=== PATIENT | male | born 1985 | race Hispanic/Latino ===

== ENCOUNTER 2019-10-18 18:41 | Observation (INO) | payer SELFPAY ==
[2019-10-18] MEDS ORDERED: NA CHLORIDE 0.9% 2,000 ML ONE (19:52)
[2019-10-18] MEDS ORDERED: FAMOTIDINE 20 MG/2 ML VIAL IV ONE (19:52)
[2019-10-18] MEDS ORDERED: ONDANSETRON 4 MG/2 ML VIAL ONE (19:52)
[2019-10-18] MEDS ORDERED: MORPHINE 4 MG/ML SYR ONE (19:52)
[2019-10-18 20:01] LABS: Absolute Lymphocytes (CBC) 1.2 K/uL (0.7-4.9); Basophils % 0.3 % (0-1.3); Hematocrit 48.7 % (39.6-49.0); Lymphocytes % 11.7 % (15.3-44.8); RBC Red Blood Cell Count 5.85 M/uL (4.33-5.43)
[2019-10-18 20:02] LABS: Protime INR 1.11
[2019-10-18 20:22] LABS: ALT/SGPT 44 U/L (12-78); AST/SGOT 19 U/L (15-37); Albumin 3.9 g/dL (3.4-5.0); Alkaline Phosphatase 84 U/L (45-117); BUN Blood Urea Nitrogen 14 mg/dL (7-18); Bicarbonate 27 mmol/L (21-32); Bilirubin Direct 0.1 mg/dL (0-0.2); Bilirubin Total 0.6 mg/dL (0.2-1.0); Glucose Level 93 mg/dL (74-106); Lipase 76 U/L (73-393); Magnesium 2.1 mg/dL (1.8-2.4); Potassium 3.8 mmol/L (3.5-5.1); Protein, Total 8.1 g/dL (6.4-8.2); Sodium Level 137 mmol/L (136-145); Troponin (Emerg Dept Use Only) < 0.02 ng/mL (0.0-0.045)
[2019-10-18 20:38] LABS: NT PRO-BNP < 5 pg/mL (<125)
--- NOTE | 2019-10-18 20:51 | RAD REPORT ---
EXAM DESCRIPTION: Rose Single View10/18/2019 8:21 pm CLINICAL HISTORY: Abdominal pain COMPARISON: none FINDINGS: The lungs appear clear of acute infiltrate. The heart is normal size IMPRESSION: No acute abnormalities displayed
--- NOTE | 2019-10-18 20:56 | RAD REPORT ---
EXAM DESCRIPTION: US - Abdomen Exam Limited - 10/18/2019 8:46 pm CLINICAL HISTORY: Abdominal pain. COMPARISON: None. FINDINGS: The gallbladder wall is not thickened. A gallstone is not seen. The biliary tree is normal caliber. IMPRESSION: Unremarkable gallbladder ultrasound.
[2019-10-18 20:59] LABS: Urine Blood TRACE (NEG); Urine Glucose NEGATIVE (NEG); Urine Specific Gravity 1.025 (1.005-1.030)
[2019-10-18 21:00] LABS: Urine Protein NEGATIVE (NEG); Urine pH 6.5 (5.0-7.0)
[2019-10-18] MEDS ORDERED: MAGNE/ALUM HYDROXD 30 ML UCUP ONE (21:09)
[2019-10-18] MEDS ORDERED: LIDOCAINE VISCOUS 2% SOLN 15 ML UDC ONE (21:09)
[2019-10-18] MEDS ORDERED: METOPROLOL TAR 50 MG TAB ONE (21:15)
[2019-10-18] MEDS ORDERED: METOPROLOL TARTRATE 5 MG/5 ML INJ IV ONE (21:15)
--- NOTE | 2019-10-18 22:07 | EDPHYS ---
Physician Documentation [facility] Name: Dipesh Lott Age: 33 yrs Sex: Male : 1985 Arrival Date: 10/18/2019 Time: 18:44 Bed 8 Private MD: [place] Physician Brennan Crawley HPI: 10/18 19:40 This 33 yrs old Male presents to ER via Ambulatory with complaints of larry Abdominal Pain, Chest Pain, Back Pain. 19:40 The patient or guardian reports chest pain that is located primarily in the substernal larry area. The pain radiates to Associated signs and symptoms: The patient has no apparent associated signs or symptoms. The chest pain is described as burning. Modifying factors: The symptoms are alleviated by nothing. the symptoms are aggravated by eating. Severity of pain: At its worst the pain was. The patient has experienced a previous episode, last year. Historical: - Allergies: 18:52 No Known Allergies; jl7 - Home Meds: 18:52 None [Active]; jl7 - PMHx: 18:52 ADD/ADHD; jl7 - PSHx: 18:52 Appendectomy; jl7 - Immunization history:: Adult Immunizations not up to date. - Social history:: Smoking status: Patient/guardian denies using tobacco, Patient uses alcohol, only on a social basis. - Ebola Screening: : No symptoms or risks identified at this time. - Family history:: not pertinent. ROS: 19:40 Constitutional: Negative for fever, chills, and weight loss, Eyes: Negative for injury, larry pain, redness, and discharge, ENT: Negative for injury, pain, and discharge, Neck: Negative for injury, pain, and swelling, Cardiovascular: Negative for chest pain, palpitations, and edema, Respiratory: Negative for shortness of breath, cough, wheezing, and pleuritic chest pain, Back: Negative for injury and pain, : Negative for injury, bleeding, discharge, and swelling, MS/Extremity: Negative for injury and deformity, Skin: Negative for injury, rash, and discoloration, Neuro: Negative for headache, weakness, numbness, tingling, and seizure, Psych: Negative for depression, anxiety, suicide ideation, homicidal ideation, and hallucinations, Allergy/Immunology: Negative for hives, rash, and allergies, Endocrine: Negative for neck swelling, polydipsia, polyuria, polyphagia, and marked weight changes, Hematologic/Lymphatic: Negative for swollen nodes, abnormal bleeding, and unusual bruising. 19:40 Abdomen/GI: Positive for abdominal pain. Exam: 19:40 Constitutional: This is a well developed, well nourished patient who is awake, alert, larry and in no acute distress. Head/Face: Normocephalic, atraumatic. Eyes: Pupils equal round and reactive to light, extra-ocular motions intact. Lids and lashes normal. Conjunctiva and sclera are non-icteric and not injected. Cornea within normal limits. Periorbital areas with no swelling, redness, or edema. ENT: Nares patent. No nasal discharge, no septal abnormalities noted. Tympanic membranes are normal and external auditory canals are clear. Oropharynx with no redness, swelling, or masses, exudates, or evidence of obstruction, uvula midline. Mucous membranes moist. Neck: Trachea midline, no thyromegaly or masses palpated, and no cervical lymphadenopathy. Supple, full range of motion without nuchal rigidity, or vertebral point tenderness. No Meningismus. Chest/axilla: Normal chest wall appearance and motion. Nontender with no deformity. No lesions are appreciated. Respiratory: Lungs have equal breath sounds bilaterally, clear to auscultation and percussion. No rales, rhonchi or wheezes noted. No increased work of breathing, no retractions or nasal flaring. Back: No spinal tenderness. No costovertebral tenderness. Full range of motion. Male : Normal genitalia with no discharge or lesions. Skin: Warm, dry with normal turgor. Normal color with no rashes, no lesions, and no evidence of cellulitis. MS/ Extremity: Pulses equal, no cyanosis. Neurovascular intact. Full, normal range of motion. Neuro: Awake and alert, GCS 15, oriented to person, place, time, and situation. Cranial nerves II-XII grossly intact. Motor strength 5/5 in all extremities. Sensory grossly intact. Cerebellar exam normal. Normal gait. Psych: Awake, alert, with orientation to person, place and time. Behavior, mood, and affect are within normal limits. 19:40 Cardiovascular: Rate: tachycardic, Rhythm: regular, Pulses: Pulses are 4+ in bilateral radial, brachial, femoral, popliteal, posterior tibial and and dorsalis pedis arteries.. Heart sounds: normal, Edema: is not appreciated, JVD: is not appreciated. Vital Signs: 18:52 BP 149 / 108; Pulse 112; Resp 19; Temp 98.1(O); Pulse Ox 99% on R/A; Weight 81.65 kg 7 (R); Height 5 ft. 7 in. (170.18 cm) (R); Pain 7/10; 20:30 BP 131 / 95; Pulse 95; Resp 18; Pulse Ox 98% ; Pain 1/10; rr5 21:18 BP 156 / 116; Pulse 121; Resp 16; Pulse Ox 98% on R/A; rr5 21:49 BP 132 / 90; Pulse 93; Resp 19; Temp 98; Pulse Ox 98% ; Pain 1/10; rr5 22:45 BP 110 / 84; Pulse 91; Resp 15; Pulse Ox 99% ; rr5 23:19 BP 106 / 85; Pulse 86; Resp 17; Temp 98.1; Pulse Ox 97% ; Pain 0/10; rr5 18:52 Body Mass Index 28.19 (81.65 kg, 170.18 cm) [facility] MDM: 19:20 Patient medically screened. larry 19:42 Data reviewed: vital signs, nurses notes, lab test result(s), EKG, radiologic studies. [facility] 10/18 19:40 Order name: Basic Metabolic Panel; Complete Time: 20:44 larry 10/18 19:40 Order name: CBC with Diff; Complete Time: 20:44 larry 10/18 19:40 Order name: LFT's; Complete Time: 20:44 [facility] 10/18 19:40 Order name: Magnesium; Complete Time: 20:44 [facility] 10/18 19:40 Order name: NT PRO-BNP; Complete Time: 20:44 larry 10/18 19:40 Order name: PT-INR; Complete Time: 20:44 [facility] 10/18 19:40 Order name: Troponin (emerg Dept Use Only); Complete Time: 20:44 larry 10/18 19:40 Order name: Lipase; Complete Time: 20:44 larry 10/18 20:13 Order name: Urine Dipstick--Ancillary (enter results); Complete Time: 22:03 ar5 10/19 04:05 Order name: CBC with Automated Diff EDMS 10/19 04:10 Order name: CKMB Creatine Kinase MB [facility] 10/19 04:10 Order name: Troponin I [facility] 10/19 04:29 Order name: Hemoglobin A1c [facility] 10/19 05:06 Order name: Comprehensive Metabolic Panel [facility] 10/18 19:23 Order name: EKG; Complete Time: 19:24 pr1 10/18 19:40 Order name: XRAY Chest (1 view); Complete Time: 22:03 [facility] 10/18 19:40 Order name: US Abdomen Limited; Complete Time: 22:03 [facility] 10/18 19:43 Order name: CT Abd/Pelvis - IV Contrast Only [facility] 10/19 05:06 Order name: Lipid Profile [facility] 10/19 05:06 Order name: Magnesium [facility] 10/19 05:06 Order name: Thyroid Stimulating Hormone [facility] 10/18 19:23 Order name: EKG - Nurse/Tech; Complete Time: 19:23 [facility] 10/18 19:40 Order name: Cardiac monitoring; Complete Time: 20:05 [facility] 10/18 19:40 Order name: IV Saline Lock; Complete Time: 20:05 [facility] 10/18 19:40 Order name: Labs collected and sent; Complete Time: 20:05 [facility] 10/18 19:40 Order name: O2 Per Protocol; Complete Time: 20:05 [facility] 10/18 19:40 Order name: O2 Sat Monitoring; Complete Time: 20:05 [facility] 10/18 19:40 Order name: Urine Dipstick-Ancillary (obtain specimen); Complete Time: 20:04 [facility] Administered Medications: 19:50 Drug: NS 0.9% 1000 ml Route: IV; Rate: 1 bolus; Site: right antecubital; rr5 22:13 Follow up: Response: No adverse reaction; IV Status: Completed infusion; IV Intake: rr5 1000ml 19:51 Drug: Pepcid 20 mg Route: IVP; Site: right antecubital; rr5 20:30 Follow up: Response: No adverse reaction; Pain is decreased rr5 19:53 Drug: Zofran 4 mg Route: IVP; Site: right antecubital; rr5 20:40 Follow up: Response: No adverse reaction rr5 19:55 Drug: morphine 4 mg {Note: rass 0.} Route: IVP; Site: right antecubital; rr5 20:30 Follow up: Response: No adverse reaction; Pain is decreased; RASS: Alert and Calm (0) rr5 21:00 Drug: NS 0.9% 1000 ml Route: IV; Rate: 1 bolus; Site: right antecubital; rr5 22:00 Follow up: Response: No adverse reaction; IV Status: Completed infusion; IV Intake: rr5 1000ml 21:12 Drug: GI Cocktail without - (Maalox Suspension 30 ml, Lidocaine Liquid 2 % 15 rr5 ml) Route: PO; 22:12 Follow up: Response: No adverse reaction rr5 21:18 Drug: Lopressor (metoprolol TARTRATE) 50 mg Route: PO; rr5 22:13 Follow up: Response: Blood pressure is lowered; Other; HR lowered rr5 21:18 Drug: Lopressor 5 mg Route: IVP; Site: right antecubital; rr5 22:12 Follow up: Response: Blood pressure is lowered; Other; Jeart rate lowered rr5 22:12 Drug: Lovenox 80 mg Route: Sub-Q; Site: right lower abdomen; rr5 10/19 01:02 Follow up: Response: No adverse reaction ak1 Disposition: 10/18/19 22:06 Hospitalization ordered by Mariia Jeffers for Observation. Preliminary diagnosis are Chest pain, unspecified, Essential (primary) hypertension, Functional dyspepsia. - Bed requested for Telemetry/MedSurg (observation). - Status is Observation. rr5 - Condition is Stable. - Problem is new. - Symptoms have improved. UTI on Admission? No Signatures: Dispatcher [employer] EDMS Brennan Crawley MD MD cha Lasagna, Tonya RN RN tl1 Cat Ng RN RN ak1 Yessica Henderson RN RN jl7 Mike Pickard, RN RN rr5 Corrections: (The following items were deleted from the chart) 10/18 23:18 22:06 Hospitalization Ordered by Mariia Jeffers MD for Observation. Preliminary diagnosis tl1 is Chest pain, unspecified; Essential (primary) hypertension; Functional dyspepsia. Bed requested for Telemetry/MedSurg (observation). Status is Observation. Condition is Stable. Problem is new. Symptoms have improved. UTI on Admission? No. larry 23:25 23:18 10/18/2019 22:06 Hospitalization Ordered by Mariia Jeffers MD for Observation. tl1 Preliminary diagnosis is Chest pain, unspecified; Essential (primary) hypertension; Functional dyspepsia. Bed requested for Telemetry/MedSurg (observation). Status is Observation. Condition is Stable. Problem is new. Symptoms have improved. UTI on Admission? No. tl1 10/19 05:18 12 23:25 10/18/2019 22:06 Hospitalization Ordered by Mariia Jeffers MD for tl1 Observation. Preliminary diagnosis is Chest pain, unspecified; Essential (primary) hypertension; Functional dyspepsia. Bed requested for [facility] ER HOLD. Status is Observation. Condition is Stable. Problem is new. Symptoms have improved. UTI on Admission? No. tl1 10/19 06:06 05:18 10/18/2019 22:06 Hospitalization Ordered by Mariia Jeffers MD for Observation. rr5 Preliminary diagnosis is Chest pain, unspecified; Essential (primary) hypertension; Functional dyspepsia. Bed requested for Telemetry/MedSurg (observation). Status is Observation. Condition is Stable. Problem is new. Symptoms have improved. UTI on Admission? No. tl1
--- NOTE | 2019-10-18 22:07 | ER ---
Nurse's Notes [facility] Name: Dipesh Lott Age: 33 yrs Sex: Male : 1985 Arrival Date: 10/18/2019 Time: 18:44 Bed 8 Private MD: Diagnosis: Chest pain, unspecified;Essential (primary) hypertension;Functional dyspepsia Presentation: 10/18 18:49 Presenting complaint: Patient states: Last night started feeling like heart burn and jl7 then today the pain started wrapping around to the back, denies nausea. Transition of care: patient was not received from another setting of care. Onset of symptoms was October 17, 2019. Risk Assessment: Do you want to hurt yourself or someone else? Patient reports no desire to harm self or others. Initial Sepsis Screen: Does the patient meet any 2 criteria? HR > 90 bpm. No. Patient's initial sepsis screen is negative. Does the patient have a suspected source of infection? Yes: Acute abdominal pain. Care prior to arrival: None. 18:49 Method Of Arrival: Ambulatory jl7 18:49 Acuity: JOSE 3 jl7 Historical: - Allergies: 18:52 No Known Allergies; jl7 - Home Meds: 18:52 None [Active]; jl7 - PMHx: 18:52 ADD/ADHD; jl7 - PSHx: 18:52 Appendectomy; jl7 - Immunization history:: Adult Immunizations not up to date. - Social history:: Smoking status: Patient/guardian denies using tobacco, Patient uses alcohol, only on a social basis. - Ebola Screening: : No symptoms or risks identified at this time. - Family history:: not pertinent. Screenin:00 Abuse screen: Denies threats or abuse. Denies injuries from another. Nutritional rr5 screening: On. Tuberculosis screening: No symptoms or risk factors identified. Fall Risk IV access (20 points). Total Jacome Fall Scale indicates No Risk (0-24 pts). Assessment: 19:00 General: Appears in no apparent distress. uncomfortable, Behavior is calm, cooperative, rr5 appropriate for age. 19:00 Pain: Complains of pain in epigastric area Pain radiates to back Pain currently is 8 rr5 out of 10 on a pain scale. Quality of pain is described as burning, Pain began gradually, Is intermittent. Neuro: Level of Consciousness is awake, alert, obeys commands, Oriented to person, place, time, situation, Appropriate for age. Cardiovascular: Capillary refill < 3 seconds Patient's skin is warm and dry. Respiratory: Airway is patent Respiratory effort is even, labored, Respiratory pattern is regular, symmetrical. GI: Abdomen is round Bowel sounds present X 4 quads. Abd is soft and non tender Reports upper abdominal pain, epigastric pain. : No signs and/or symptoms were reported regarding the genitourinary system. EENT: No signs and/or symptoms were reported regarding the EENT system. Derm: Skin is intact, is healthy with good turgor, Skin temperature is warm. Musculoskeletal: Circulation, motion, and sensation intact. Capillary refill < 3 seconds. 20:00 Reassessment: Patient appears in no apparent distress at this time. Patient is alert, rr5 oriented x 3, equal unlabored respirations, skin warm/dry/pink. Patient states symptoms have improved. 20:56 Reassessment: Patient appears in no apparent distress at this time. Patient is alert, rr5 oriented x 3, equal unlabored respirations, skin warm/dry/pink. send for CT scan Patient states feeling better. Patient states symptoms have improved. 21:30 Reassessment: Patient appears in no apparent distress at this time. Patient and/or rr5 family updated on plan of care and expected duration. Pain level reassessed. Patient is alert, oriented x 3, equal unlabored respirations, skin warm/dry/pink. no complaints made, awaiting for result. 22:30 Reassessment: Patient appears in no apparent distress at this time. Patient is alert, rr5 oriented x 3, equal unlabored respirations, skin warm/dry/pink. hospitalist at bedside examining the patient. Vital Signs: 18:52 BP 149 / 108; Pulse 112; Resp 19; Temp 98.1(O); Pulse Ox 99% on R/A; Weight 81.65 kg jl7 (R); Height 5 ft. 7 in. (170.18 cm) (R); Pain 7/10; 20:30 BP 131 / 95; Pulse 95; Resp 18; Pulse Ox 98% ; Pain 1/10; rr5 21:18 BP 156 / 116; Pulse 121; Resp 16; Pulse Ox 98% on R/A; rr5 21:49 BP 132 / 90; Pulse 93; Resp 19; Temp 98; Pulse Ox 98% ; Pain 1/10; rr5 22:45 BP 110 / 84; Pulse 91; Resp 15; Pulse Ox 99% ; rr5 23:19 BP 106 / 85; Pulse 86; Resp 17; Temp 98.1; Pulse Ox 97% ; Pain 0/10; rr5 18:52 Body Mass Index 28.19 (81.65 kg, 170.18 cm) jl7 ED Course: 18:44 Patient arrived in ED. as 18:51 Triage completed. jl7 18:52 Arm band placed on right wrist. jl7 18:54 Minh Vivas, RN is Primary Nurse. bp 19:06 Primary Nurse role handed off by Minh Vivas, ANITA rr5 19:06 Mike Pickard, RN is Primary Nurse. rr5 19:19 Brennan Crawley MD is Attending Physician. larry 19:30 Inserted saline lock: 20 gauge in right antecubital area, using aseptic technique. rr5 ,using aseptic technique. inserted by [employer] resource technician Blood collected. 19:47 Radiology exam delayed due to lab results not completed at this time. (BUN/Creatinine). vm2 20:06 Patient has correct armband on for positive identification. Placed in gown. Bed in low rr5 position. Call light in reach. Side rails up X2. cardiac monitor on. Pulse ox on. NIBP on. 20:12 Radiology exam delayed due to lab results not completed at this time. (BUN/Creatinine). vm2 20:21 XRAY Chest (1 view) In Process Unspecified. EDMS 20:46 US Abdomen Limited In Process Unspecified. EDMS 21:14 CT Abd/Pelvis - IV Contrast Only In Process Unspecified. EDMS 22:04 Mariia Jeffers MD is Hospitalizing Provider. larry 10/19 01:02 No provider procedures requiring assistance completed. Patient admitted, IV remains in ak1 place. Administered Medications: 10/18 19:50 Drug: NS 0.9% 1000 ml Route: IV; Rate: 1 bolus; Site: right antecubital; rr5 22:13 Follow up: Response: No adverse reaction; IV Status: Completed infusion; IV Intake: rr5 1000ml 19:51 Drug: Pepcid 20 mg Route: IVP; Site: right antecubital; rr5 20:30 Follow up: Response: No adverse reaction; Pain is decreased rr5 19:53 Drug: Zofran 4 mg Route: IVP; Site: right antecubital; rr5 20:40 Follow up: Response: No adverse reaction rr5 19:55 Drug: morphine 4 mg {Note: rass 0.} Route: IVP; Site: right antecubital; rr5 20:30 Follow up: Response: No adverse reaction; Pain is decreased; RASS: Alert and Calm (0) rr5 21:00 Drug: NS 0.9% 1000 ml Route: IV; Rate: 1 bolus; Site: right antecubital; rr5 22:00 Follow up: Response: No adverse reaction; IV Status: Completed infusion; IV Intake: rr5 1000ml 21:12 Drug: GI Cocktail without - (Maalox Suspension 30 ml, Lidocaine Liquid 2 % 15 rr5 ml) Route: PO; 22:12 Follow up: Response: No adverse reaction rr5 21:18 Drug: Lopressor (metoprolol TARTRATE) 50 mg Route: PO; rr5 22:13 Follow up: Response: Blood pressure is lowered; Other; HR lowered rr5 21:18 Drug: Lopressor 5 mg Route: IVP; Site: right antecubital; rr5 22:12 Follow up: Response: Blood pressure is lowered; Other; Jeart rate lowered rr5 22:12 Drug: Lovenox 80 mg Route: Sub-Q; Site: right lower abdomen; rr5 10/19 01:02 Follow up: Response: No adverse reaction ak1 Intake: 10/18 22:00 IV: 1000ml; Total: 1000ml. rr5 22:13 IV: 1000ml; Total: 2000ml. rr5 Outcome: 22:06 Decision to Hospitalize by Provider. larry 10/19 01:02 Admitted to ER Hold. Please see [facility] for further documentation. ak1 Condition: stable Instructed on the need for admit. 06:06 Patient left the ED. rr5 Signatures: Dispatcher [employer] EDBrennan Crews MD MD cha Martinez, Amelia as Krenek, Amber RN RN ak1 Yessica Henderson RN RN jl7 Lisa Lawrence 2 Ortega, Minh, RN RN bp Pickard, Mike, RN RN rr5
[2019-10-18] MEDS ORDERED: ENOXAPARIN 80 MG/0.8 ML SQ ONE (22:10)
[2019-10-18] MEDS ORDERED: MORPHINE 2 MG/ML SYR IV PRN (23:52)
[2019-10-18] MEDS ORDERED: ONDANSETRON 4 MG/2 ML VIAL IV PRN (23:52)
[2019-10-18] MEDS ORDERED: ACETAMINOPHEN 500 MG TAB PO PRN (23:52)
--- NOTE | 2019-10-18 23:53 | P.HP ---
Certification for Inpatient Patient admitted to: Observation With expected LOS: <2 Midnights Patient will require the following post-hospital care: None Practitioner: I am a practitioner with admitting privileges, knowledge of patient current condition, hospital course, and medical plan of care. Services: Services provided to patient in accordance with Admission requirements found in Title 42 Section 412.3 of the Code of Federal Regulations Patient History Date of Service: 10/19/19 Reason for admission: CHEST PAIN AND EPIGASTRIC PAIN History of Present Illness: Dipesh holland is a 33yoM w/ pmhx of obesity and GERD who presents with 24hr abdominal epigastric burning pain radiating to the substernal region, and transversely along the abdomen to the back. he states that he had a similar episode 2 years ago and was told he had heartburn and started on medication of which he personally never took. he reports CP as a burning sensation radiating from the epigastric region and radiating into the substernal region and then to the back. he denies loss of appetite, fever, chills, sob, n/v/flanagan, dizziness, rashes, sores, swelling, abnormal balance. he reports decreased PO intake due to worsening abdominal pain with eating although he has an appetite. he denies change in urine or bowels. on initial ED eval pt was noted to have HTN and treated w/ improved BP readings. he denies tobacco/drug use. reports etoh use/monthly. Allergies No Known Allergies Allergy (Unverified 10/18/19 23:51) - Past Medical/Surgical History Diabetic: No -: GERD -: APPENDECTOMY - Social History Smoking Status: Never smoker Counseled patient to stop smoking for: less than 10 minutes Alcohol use: Yes CD- Drugs: No Review of Systems General: As per HPI, Unremarkable Eyes: Unremarkable ENT: As per HPI, Unremarkable Respiratory: Unremarkable Cardiovascular: Chest Pain, As per HPI Gastrointestinal: Nausea, Abdominal Pain Genitourinary: Unremarkable Musculoskeletal: Unremarkable Integumentary: Unremarkable Neurological: Unremarkable Physical Examination - Physical Exam General: Alert, In no apparent distress, Oriented x3, Cooperative, Other ( unkept ) HEENT: Atraumatic, PERRLA Neck: Supple Respiratory: Clear to auscultation bilaterally, Normal air movement Cardiovascular: No edema, Normal pulses, Regular rate/rhythm, No murmurs Gastrointestinal: Normal bowel sounds, Non-distended, W/out hepatomegaly, No tenderness, No guarding, Other (obese) Musculoskeletal: No clubbing, No swelling, No erythema Integumentary: No rashes, No cyanosis Neurological: Normal speech, Cranial nerves 3-12 intact External genitalia: Deferred Rectal: Deferred - Studies Laboratory Data (last 24 hrs) 10/18/19 19:29: PT 13.1 H, INR 1.11 10/18/19 19:29: WBC 9.9, Hgb 16.8, Hct 48.7, Plt Count 305 10/18/19 19:29: Sodium 137, Potassium 3.8, BUN 14, Creatinine 0.83, Glucose 93, Magnesium 2.1, Total Bilirubin 0.6, AST 19, ALT 44, Alkaline Phosphatase 84, Lipase 76 Assessment and Plan - Plan 33yoM admitted w/ radiating epigastric pain - h/o similar episodes in the past will start on PPI will trend LFTs obtain daily cbc, cmp, tsh, a1c and lipid panel chest pain - noted as burning in nature, improved w/ GI cocktail . on initial ED eval elevated BP treated and improved trend CE, obtain TTE monitor tele, o2 sats strict I/O continued on norvasc - with hold parameters h/o heartburn consoled on weight loss and dietary changes DVT ppx - scd Discharge Plan: Home - Advance Directives Does patient have a Living Will: No Does patient have a Durable POA for Healthcare: No
[2019-10-19 03:50] LABS: Absolute Lymphocytes (CBC) 1.5 K/uL (0.7-4.9); Basophils % 0.4 % (0-1.3); Hematocrit 46.1 % (39.6-49.0); Lymphocytes % 15.6 % (15.3-44.8); MPV 7.9 fL (7.6-11.3); RBC Red Blood Cell Count 5.41 M/uL (4.33-5.43)
[2019-10-19 04:10] LABS: CKMB Creatine Kinase MB < 1.0 ng/mL (0.3-3.6); Troponin I < 0.02 ng/mL (0.0-0.045)
[2019-10-19 04:36] LABS: ALT/SGPT 37 U/L (12-78); AST/SGOT 19 U/L (15-37); Albumin 3.2 g/dL (3.4-5.0); Alkaline Phosphatase 70 U/L (45-117); BUN Blood Urea Nitrogen 11 mg/dL (7-18); Bicarbonate 27 mmol/L (21-32); Bilirubin Total 0.6 mg/dL (0.2-1.0); Glucose Level 91 mg/dL (74-106); HDL Cholesterol 34 mg/dL (40-60); LDL Cholesterol, Calculated 122 (<130); Magnesium 2.1 mg/dL (1.8-2.4); Potassium 3.9 mmol/L (3.5-5.1); Protein, Total 6.7 g/dL (6.4-8.2); Sodium Level 137 mmol/L (136-145)
[2019-10-19] MEDS ORDERED: DOCUSATE NA 100 MG CAP PO PRN (05:14)
[2019-10-19 06:25] VITALS: BMI 28.9
[2019-10-19] MEDS ORDERED: PANTOPRAZOLE 40MG TABLET PO SCH (06:30)
[2019-10-19 06:40] VITALS: O2SAT 98
--- NOTE | 2019-10-19 07:02 | EKG ---
Test Date: 2019-10-18 Test Time: 19:18:55 [employer]er: ALIS MEASUREMENT RESULTS: Intervals: Rate: 116 CO: 138 QRSD: 64 QT: 300 QTc: 417 Hurst: P: 19 CO: 138 QRS: 18 T: 22 INTERPRETIVE STATEMENTS: Sinus tachycardia Otherwise normal ECG No previous ECG available for comparison Electronically Signed On 10-19-19 07:01:21 TRAINING INTERN by Candido Phan
[2019-10-19 07:56] LABS: Barbiturates NEGATIVE (NEGATIVE); Benzodiazepines NEGATIVE (NEGATIVE); Cocaine NEGATIVE (NEGATIVE); METHAMPHETAM NEGATIVE (NEGATIVE); Methadone NEGATIVE (NEGATIVE); Opiates NEGATIVE (NEGATIVE); Phencyclidine NEGATIVE (NEGATIVE); THC Cannibis NEGATIVE (NEGATIVE)
[2019-10-19] MEDS ORDERED: INFLUENZA VACCINE (for 3y+) 0.5 ML DOSE IMVAC ONE (08:00)
[2019-10-19] MEDS ORDERED: AMLODIPINE 2.5 MG TAB PO SCH (09:00)
[2019-10-19] MEDS ORDERED: ASPIRIN 325 MG TAB PO SCH (09:00)
[2019-10-19 12:07] VITALS: BP 123/83; TEMP 97.8
[2019-10-19 12:19] LABS: CKMB Creatine Kinase MB < 1.0 ng/mL (0.3-3.6); Troponin I < 0.02 ng/mL (0.0-0.045)
--- NOTE | 2019-10-19 12:33 | RAD REPORT ---
EXAM DESCRIPTION: CT ABDOMEN PELVIS WITH IV CONTRAST CLINICAL HISTORY: Abdominal pain. COMPARISON: None. TECHNIQUE: CT scan of the abdomen and pelvis was performed with IV contrast. This exam was performed according to our departmental dose-optimization program, which includes automated exposure control, adjustment of the mA and/or kV according to patient size and/or use of iterative reconstruction techn ique. FINDINGS: There is a likely 2.7 cm hemangioma in the right hepatic lobe. The gallbladder, spleen, pa ncreas, adrenal glands, kidneys, and pelvic organs are unremarkable. No hydronephrosis or urinary sto reese. There has been a prior appendectomy. No small bowel obstruction or acute diverticulitis. No intraperi toneal free fluid or free air is seen. There is a small spur along the superior endplate of L5. No ac bad river band bony findings. The aorta is normal in caliber. Small fat-containing umbilical hernia. IMPRESSION: No acute abdominal or pelvic findings. Electronically signed by: Vega Francis MD 10/18/2019 9:52 PM [employer] Due to temporary technical issues with the PACS/Fluency reporting system, reports are being signed by the in house radiologist as a courtesy to ensure prompt reporting. The interpreting radiologist is f ully responsible for the content of the report.
--- NOTE | 2019-10-19 14:24 | P.DS ---
Admission Date: 10/18/19 Discharge Date: 10/19/19 Disposition: ROUTINE DISCHARGE Discharge Condition: GOOD Reason for Admission: CHEST PAIN AND EPIGASTRIC PAIN Consultations: None Procedures: None Brief History of Present Illness: 33-year-old gentleman with a history of obesity and GERD presented to the emergency department with a complaint of epigastric pain, abdominal pain radiating to the back. Patient reports having this episode in the past and was told he has gastritis. In the ED, initial troponin was negative. EKG showed sinus tachycardia and no ischemic changes. Chest x-ray unremarkable. Abdominal CT also done was unremarkable, no gallstones. He was moderately hypertensive in the emergency department. Patient was placed under observation for ACS rule out. Hospital Course: Troponin trended came back negative. Patient was placed on Protonix and aspirin. His symptoms resolved after hospitalization. Today patient is asymptomatic. ACS has been ruled out. His symptoms most likely related to GERD or gastritis. Patient is deemed clinically stable for discharge. He is discharged with a trial of Protonix and informed to follow with a publication designer if his symptoms does not improve. Vital Signs/Physical Exam: Temp Pulse Resp BP Pulse Ox 97.8 F 87 15 123/83 97 10/19/19 12:00 10/19/19 12:00 10/19/19 12:00 10/19/19 12:00 10/19/19 12:00 General: Alert, In no apparent distress, Oriented x3 HEENT: Mucous membr. moist/pink Neck: Supple, JVD not distended Respiratory: Clear to auscultation bilaterally, Normal air movement Cardiovascular: No edema, Regular rate/rhythm, Normal S1 S2 Gastrointestinal: Normal bowel sounds, Soft and benign, Non-distended, No tenderness Musculoskeletal: No swelling Integumentary: No rashes Neurological: Normal speech, Normal strength at 5/5 x4 extr Laboratory Data at Discharge: WBC 9.7 K/uL (4.3-10.9) 10/19/19 03:31 Hgb 15.5 g/dL (13.6-17.9) 10/19/19 03:31 Hct 46.1 % (39.6-49.0) 10/19/19 03:31 Plt Count 261 K/uL (152-406) 10/19/19 03:31 PT 13.1 SECONDS (9.5-12.5) H 10/18/19 19:29 INR 1.11 10/18/19 19:29 Sodium 137 mmol/L (136-145) 10/19/19 03:31 Potassium 3.9 mmol/L (3.5-5.1) 10/19/19 03:31 BUN 11 mg/dL (7-18) 10/19/19 03:31 Creatinine 0.88 mg/dL (0.55-1.3) 10/19/19 03:31 Glucose 91 mg/dL (74-106) 10/19/19 03:31 Magnesium 2.1 mg/dL (1.8-2.4) 10/19/19 03:31 Total Bilirubin 0.6 mg/dL (0.2-1.0) 10/19/19 03:31 AST 19 U/L (15-37) 10/19/19 03:31 ALT 37 U/L (12-78) 10/19/19 03:31 Alkaline Phosphatase 70 U/L (45-117) 10/19/19 03:31 Troponin I < 0.02 ng/mL (0.0-0.045) 10/19/19 11:48 Triglycerides 123 mg/dL (<150) 10/19/19 03:31 Cholesterol 181 mg/dL (<200) 10/19/19 03:31 HDL Cholesterol 34 mg/dL (40-60) L 10/19/19 03:31 Cholesterol/HDL Ratio 5.32 10/19/19 03:31 Lipase 76 U/L (73-393) 10/18/19 19:29 Home Medications: Pantoprazole [Protonix Tab*] 40 mg PO DAILYAC #30 tab 10/19/19 New Medications: Pantoprazole [Protonix Tab*] 40 mg PO DAILYAC #30 tab Diet: AHA Activity: Ad rachelle Time spent managing pt's care (in minutes): 25
--- NOTE | 2019-10-19 15:51 | ECHO ---
HEIGHT: 5 ft 7 in WEIGHT: 184 lb 8 oz DATE OF STUDY: 10/19/[address]: Mariia Jeffers 2-DIMENSIONAL: YES M.MODE: YES DOPPLER: YES COLOR FLOW: YES TDS: PORTABLE: DEFINITY: BUBBLE STUDY: DIAGNOSIS: CHEST PAIN CARDIAC HISTORY: CATHERIZATION: NO SURGERY: NO PROSTHETIC VALVE: NO PACEMAKER: NO MEASUREMENTS (cm) DIASTOLIC (NORMALS) SYSTOLIC (NORMALS) IVSd 1.1 (0.6-1.2) LA Diam 3.6 (1.9-4.0) LVEF 67% LVIDd 3.6 (3.5-5.7) LVIDs 2.3 (2.0-3.5) %FS 36% LVPWd 1.0 (0.6-1.2) Ao Diam 2.6 (2.0-3.7) 2 DIMENSIONAL ASSESSMENT: RIGHT ATRIUM: NORMAL LEFT ATRIUM: NORMAL RIGHT VENTRICLE: NORMAL LEFT VENTRICLE: NORMAL TRICUSPID VALVE: NORMAL MITRAL VALVE: NORMAL PULMONIC VALVE: NORMAL AORTIC VALVE: NORMAL PERICARDIAL EFFUSION: NONE AORTIC ROOT: NORMAL LEFT VENTRICULAR WALL MOTION: NORMAL DOPPLER/COLOR FLOW: PHYSIOLOGICAL TRICUSPID REGURGITATION. NORMAL RIGHT VENTRICULAR SYSTOLIC PRESSURE. COMMENTS: NORMAL 2-DIMENSIONAL ECHOCARDIOGRAM WITH DOPPLER. TECHNOLOGIST: JOSE ANTONIO MAO
== END 2019-10-19 15:12 | disposition home or self-care (01) ==
LOC: ER 18:41 → ERHOLD 23:36 → 2ND 10-19 05:47
PROVIDERS: ADMIT Internal Medicine; ATTEND Internal Medicine
DX: R10.13 Epigastric pain (principal); R07.9 Chest pain, unspecified; K21.9 Gastro-esophageal reflux disease without esophagitis; Z23 Encounter for immunization
CPT/HCPCS: 36415; 71045; 74177; 76705; 80048; 80053; 80061; 80076; 80307; 81003; 82553; 83036; 83690; 83735; 83880; 84443; 84484; 85025; 85610; 90471; 93005; 93306; 96361; 96372; 96374; 96375; 99285; G0378; J1650; J2405; J7030; Q2035; Q9967

== ENCOUNTER 2020-11-19 02:30 | Emergency (ER) | payer SELFPAY ==
[2020-11-19 03:26] LABS: Absolute Lymphocytes (CBC) 1.7 K/uL (0.7-4.9); Basophils % 0.4 % (0-1.3); Hematocrit 46.5 % (39.6-49.0); MPV 8.1 fL (7.6-11.3); RBC Red Blood Cell Count 5.53 M/uL (4.33-5.43)
[2020-11-19 03:43] LABS: ALT/SGPT 37 U/L (12-78); AST/SGOT 18 U/L (15-37); Alkaline Phosphatase 78 U/L (45-117); BUN Blood Urea Nitrogen 21 mg/dL (7-18); Bicarbonate 24 mmol/L (21-32); Bilirubin Direct 0.1 mg/dL (0-0.2); Bilirubin Total 0.6 mg/dL (0.2-1.0); Glucose Level 91 mg/dL (74-106); Potassium 3.7 mmol/L (3.5-5.1); Sodium Level 137 mmol/L (136-145)
[2020-11-19 04:51] LABS: Barbiturates NEGATIVE (NEGATIVE); Benzodiazepines NEGATIVE (NEGATIVE); Cocaine NEGATIVE (NEGATIVE); METHAMPHETAM NEGATIVE (NEGATIVE); Methadone NEGATIVE (NEGATIVE); Opiates NEGATIVE (NEGATIVE); Phencyclidine NEGATIVE (NEGATIVE); THC Cannibis NEGATIVE (NEGATIVE)
[2020-11-19 05:14] LABS: Urine Blood NEGATIVE (NEG); Urine Glucose NEGATIVE (NEG); Urine Protein 1+ (NEG); Urine Specific Gravity >1.030 (1.005-1.030); Urine pH 6.5 (5.0-7.0)
--- NOTE | 2020-11-19 11:52 | EDPHYS ---
Physician Documentation [facility] Name: Dipesh Lott Age: 35 yrs Sex: Male : 1985 Arrival Date: 11/19/2020 Time: 02:35 Bed 14 Private MD: ED Physician Mekhi George HPI: 11/19 03:02 This 35 yrs old Male presents to ER via Ambulatory with complaints of Suicidal rn Ideation. 03:02 The patient presents to the emergency department with anxiety, depression, suicide rn ideation. Onset: The symptoms/episode began/occurred at an unknown time. Severity of symptoms: At their worst the symptoms were moderate in the emergency department the symptoms are unchanged. The patient has experienced similar episodes in the past. The patient has not recently seen a physician. Reports has had intermittent suicidal thoughts for "years", but worse lately over last few days, no plan, no previous attempt. Reports financial problems as well as personal relationship issues. Denies drugs or overdose. . Historical: - Allergies: 02:51 No Known Allergies; sg - PMHx: 02:51 ADD/ADHD; sg - PSHx: 02:51 Appendectomy; sg - Immunization history:: Adult Immunizations up to date. - Social history:: Smoking status: Patient denies any tobacco usage or history of. - Family history:: not pertinent. - Hospitalizations: : No recent hospitalization is reported. ROS: 03:02 Constitutional: Negative for fever, chills, and weight loss, Eyes: Negative for injury, rn pain, redness, and discharge, ENT: Negative for injury, pain, and discharge, Neck: Negative for injury, pain, and swelling, Cardiovascular: Negative for chest pain, palpitations, and edema, Respiratory: Negative for shortness of breath, cough, wheezing, and pleuritic chest pain, Abdomen/GI: Negative for abdominal pain, nausea, vomiting, diarrhea, and constipation, MS/Extremity: Negative for injury and deformity, Skin: Negative for injury, rash, and discoloration, Neuro: Negative for headache, weakness, numbness, tingling, and seizure. Exam: 03:02 Constitutional: This is a well developed, well nourished patient who is awake, alert, rn and in no acute distress. Ambulatory to room. Head/Face: Normocephalic, atraumatic. Eyes: Pupils equal round and reactive to light, extra-ocular motions intact. Lids and lashes normal. Conjunctiva and sclera are non-icteric and not injected. Cornea within normal limits. Periorbital areas with no swelling, redness, or edema. Cardiovascular: Regular rate and rhythm. Respiratory: Speaking full sentences, unlabored. Skin: Warm, dry MS/ Extremity: No cyanosis. Neuro: Awake and alert, GCS 15, oriented to person, place, time, and situation. Cranial nerves II-XII grossly intact. Motor strength 5/5 in all extremities. Sensory grossly intact. Cerebellar exam normal. Normal gait. Vital Signs: 03:03 BP 138 / 100; Pulse 98; Resp 18; Temp 97.8; Pulse Ox 99% ; Weight 86.18 kg; Height 5 ea ft. 7 in. (170.18 cm); 03:03 Body Mass Index 29.76 (86.18 kg, 170.18 cm) ea MDM: 02:36 Patient medically screened. rn 04:29 Differential diagnosis: depression, suicidal ideation. Data reviewed: vital signs, rn nurses notes, lab test result(s), EKG. Counseling: I had a detailed discussion with the patient and/or guardian regarding: the historical points, exam findings, and any diagnostic results supporting the discharge/admit diagnosis, lab results. ED course: Contacted [facility] for evaluation. . 05:57 ED course: [facility] estimated arrival time [id number].. rn 11/19 02:55 Order name: Acetaminophen; Complete Time: 04:04 rn 11/19 02:55 Order name: Basic Metabolic Panel; Complete Time: 04:04 rn 11/19 02:55 Order name: CBC with Diff; Complete Time: 04:04 rn 11/19 02:55 Order name: ETOH Level; Complete Time: 04:04 rn 11/19 02:55 Order name: Hepatic Function; Complete Time: 04:04 rn 11/19 02:55 Order name: PT-INR; Complete Time: 04:04 rn 11/19 02:55 Order name: Ptt, Activated; Complete Time: 04:04 rn 11/19 02:55 Order name: Salicylate; Complete Time: 04:04 rn 11/19 02:55 Order name: Urine Drug Screen; Complete Time: 05:19 rn 11/19 02:55 Order name: EKG; Complete Time: 02:56 rn 11/19 04:22 Order name: Urine Dipstick--Ancillary (enter results); Complete Time: 05:19 tt3 11/19 07:21 Order name: Diet Finger Food; Complete Time: 07:22 dh3 11/19 09:41 Order name: SARS-COV-2 RT PCR EDTX 11/19 02:55 Order name: EKG - Nurse/Tech; Complete Time: 03:36 rn 11/19 02:55 Order name: IV Saline Lock; Complete Time: 03:36 rn 11/19 02:55 Order name: Labs collected and sent; Complete Time: 03:36 rn 11/19 02:55 Order name: Urine Dipstick-Ancillary (obtain specimen); Complete Time: 03:54 rn Administered Medications: No medications were administered Disposition: 11/19/20 11:51 Discharged to Home. Impression: Depression, Impulsive behaviour. - Condition is Stable. - Discharge Instructions: Suicidal Feelings: How to Help Yourself, Major Depressive Disorder, [id number]. - Medication Reconciliation Form, Thank You Letter form. - Follow up: Private Physician; When: 2 - 3 days; Reason: If symptoms return, Further diagnostic work-up, Recheck today's complaints, Continuance of care, Re-evaluation by your physician. - Problem is new. - Symptoms have improved. - Notes: Keep you apointment as sheduled tomorrow. Signatures: Dispatcher [employer] [facility] Sterling Frank RN RN sg Mekhi George MD MD kdr Smita Morrow RN RN iw Mateo Gilbert MD MD nurse extern: (The following items were deleted from the chart) 08:41 05:43 CORONAVIRUS+MR.LAB.BRZ ordered. [facility] EDTX 12:09 11:51 11/19/2020 11:51 Discharged to Home. Impression: Depression, Impulsive behaviour. iw Condition is Stable. Forms are Medication Reconciliation Form, Thank You Letter, Antibiotic Education, Prescription Opioid Use. Follow up: Private Physician; When: 2 - 3 days; Reason: If symptoms return, Further diagnostic work-up, Recheck today's complaints, Continuance of care, Re-evaluation by your physician. Problem is new. Symptoms have improved. kdr
--- NOTE | 2020-11-19 11:52 | ER ---
Nurse's Notes [facility] Name: Dipesh Lott Age: 35 yrs Sex: Male : 1985 Arrival Date: 11/19/2020 Time: 02:35 Bed 14 Private MD: Diagnosis: Depression, Impulsive behaviour Presentation: 11/19 02:52 Chief complaint: Patient states: I have been having thoughts of hurting myself for a sg few days now denies a plan for suicide or self harm at this time, just states having thoughts. Coronavirus screen: Client denies travel out of the [place] in the last 14 days. At this time, the client does not indicate any symptoms associated with coronavirus-19. Ebola Screen: Patient negative for fever greater than or equal to 101.5 degrees Fahrenheit, and additional compatible Ebola Virus Disease symptoms Patient denies exposure to infectious person. Patient denies travel to an Ebola-affected area in the 21 days before illness onset. No symptoms or risks identified at this time. Initial Sepsis Screen: Does the patient meet any 2 criteria? No. Patient's initial sepsis screen is negative. Does the patient have a suspected source of infection? No. Patient's initial sepsis screen is negative. Risk Assessment: Do you want to hurt yourself or someone else? Patient reports no desire to harm self or others. Onset of symptoms was November 19, 2020. Care prior to arrival: None. 02:52 Acuity: JOSE 2 sg 02:52 Method Of Arrival: Ambulatory sg Historical: - Allergies: 02:51 No Known Allergies; sg - PMHx: 02:51 ADD/ADHD; sg - PSHx: 02:51 Appendectomy; sg - Immunization history:: Adult Immunizations up to date. - Social history:: Smoking status: Patient denies any tobacco usage or history of. - Family history:: not pertinent. - Hospitalizations: : No recent hospitalization is reported. Screenin:02 Abuse screen: Denies threats or abuse. Nutritional screening: No deficits noted. ea Tuberculosis screening: No symptoms or risk factors identified. Fall Risk IV access (20 points). Assessment: 02:50 General: Appears in no apparent distress. Behavior is calm, anxious. Pain: Denies pain. ll2 Neuro: Level of Consciousness is awake, alert, obeys commands, Oriented to person, place, time, situation. Cardiovascular: Patient's skin is warm and dry. Respiratory: Airway is patent Respiratory effort is even, unlabored, Respiratory pattern is regular, symmetrical. GI: No signs and/or symptoms were reported involving the gastrointestinal system. : No signs and/or symptoms were reported regarding the genitourinary system. EENT: No signs and/or symptoms were reported regarding the EENT system. Derm: Skin is intact, is healthy with good turgor, Skin is dry, Skin is pink, warm \T\ dry. Musculoskeletal: Circulation, motion, and sensation intact. Range of motion: intact in all extremities. 03:55 Reassessment: Patient and/or family updated on plan of care and expected duration. Pain ll2 level reassessed. Patient is alert, oriented x 3, equal unlabored respirations, skin warm/dry/pink. 05:23 Reassessment: primary nurse Mary HOWARD reports this patient is requesting to leave, sg notified, orders received to contact mental health deputy to evaluate the patient and possibly issue an MEHRAN for the patient to hold until [facility] is here to evaluate patient. 05:24 Reassessment: [facility] contacted for mental health deputy, sg awaiting a call back for the patient at this time. 05:24 Reassessment: pt became agitated and stated he wanted to leave. CHELI notified. pt ll2 remained calm and stated he just wanted his cell phone. security paged. 05:31 Reassessment: Causey with on phone, requesting information on patient status, sg informed pt has decided to stay to wait for [facility] at this time, Causey stated understanding, instructions to call again if they are needed. notified. 06:41 Reassessment: Patient and/or family updated on plan of care and expected duration. Pain ll2 level reassessed. Patient is alert, oriented x 3, equal unlabored respirations, skin warm/dry/pink. pt resting comfortably. 11:00 Reassessment: Patient appears in no apparent distress at this time. Patient and/or iw family updated on plan of care and expected duration. Pain level reassessed. Patient is alert, oriented x 3, equal unlabored respirations, skin warm/dry/pink. [facility] at bedside to assess pt. 12:08 Reassessment: pt denies SI at this time, recommendation from [facility] to follow up as iw outpatient tomorrow. Psych: 02:52 Subjective: Patient's mood is sad. Objective: Patient is cooperative, Speech is normal, sg Affect is appropriate, Patient has mutilated themselves by has not at this time. 03:02 Subjective: Patient's mood is sad, Delusions are denied, Hallucinations are denied ea Having thoughts of suicide. Objective: Patient is cooperative, Speech is normal, Affect is appropriate. Interventions: Removed personal items and placed in bag. Patient placed in hospital gown. Searched person for dangerous items. Urine collected and sent for urine drug test. Suicide Risk Assessment: Sad Person Scale: Sex of patient: Male: Score 1 point. Age of patient: Score 0 point if patient falls outside of specified age parameters. Depression: Score 1 point if signs of depression are present. Previous Attempt: Score 0 point if patient has not previously attempted suicide. Rational Thinking: Score 0 point if patient has rational thinking. Social Support: Score 0 if social support is present/available. Organized Plan: Score 0 if patient did not have an organized plan in place. Relationship: Score 1 point if patient is , , , or for a single male. Safety Checks: Personal items have been removed. Door is open. Pt denies substance abuse. Commitment: Patient will be a voluntary commitment. Vital Signs: 03:03 BP 138 / 100; Pulse 98; Resp 18; Temp 97.8; Pulse Ox 99% ; Weight 86.18 kg; Height 5 ea ft. 7 in. (170.18 cm); 03:03 Body Mass Index 29.76 (86.18 kg, 170.18 cm) ea ED Course: 02:35 Patient arrived in ED. es 02:36 Mateo Gilbert MD is Attending Physician. rn 02:43 Mary Dewey, ANITA is Primary Nurse. ll2 02:51 Arm band placed on. sg 02:52 Triage completed. sg 03:00 Inserted saline lock: 22 gauge in right forearm, using aseptic technique. Blood ea collected. 03:03 Patient has correct armband on for positive identification. Placed in gown. Bed in low ea position. Call light in reach. Pulse ox on. NIBP on. 04:15 Contacted [facility] and spoke with Iona about getting the pt screened. Iona took tt3 the pt information and stated she would pass it on to the screener. 04:31 Jno from [facility] called and stated that it would be a while before anyone could tt3 make it to screen the pt. ETA provided was in between [id number]. Information passed on to Christin Katz Nurse, RN. 04:31 Urine Drug Screen Sent. ds4 04:46 Urine Dipstick--Ancillary (enter results) Sent. ds4 06:37 Cehncho from [facility] called and stated there was a delay due to him having extra tt3 cases. Stated shift change is at 0800 and that someone should be here around 0900 to evaluate the pt. Information was passed on to Christin Katz Nurse, RN. 07:00 Report received from Sterling Frank RN. dm5 08:40 Diet: Patient given a regular meal tray. 3 09:03 Attending Physician role handed off by Mateo Gilbert MD [facility] 09:03 Mekhi George MD is Attending Physician. kdr 12:08 No provider procedures requiring assistance completed. IV discontinued, intact, iw bleeding controlled, No redness/swelling at site. Pressure dressing applied. Administered Medications: No medications were administered Outcome: 11:51 Discharge ordered by MD. kdr 12:08 Discharged to home ambulatory. iw 12:08 Condition: good 12:08 Discharge instructions given to patient, Instructed on discharge instructions, follow up and referral plans. medication usage, Demonstrated understanding of instructions, follow-up care, medications, Prescriptions given X 2. 12:09 Patient left the ED. iw Signatures: Nelda Wesley RN RN dm5 Gay, Steven, RN RN sg Rittger, Kevin, MD MD [facility] Idania Mann Irene, RN RN Mateo Gilbert MD MD rn Swanson, Donovan 4 Apolonia Dolan 3 Janelle Ascencio RN RN ea Linscombe, Lacie, RN RN ll2 Marino Ruiz tt3 Corrections: (The following items were deleted from the chart) 03:18 02:52 Chief complaint: Patient states: I have been having thoughts of hurting myself sg for a few days now sg
[2020-11-19 12:46] VITALS: BP 138/100; TEMP 97.8; O2SAT 99
--- NOTE | 2020-11-19 17:32 | EKG ---
Test Date: 2020-11-19 Test Time: 02:51:01 Tape Sewer: SWG MEASUREMENT RESULTS: Intervals: Rate: 100 IL: 142 QRSD: 62 QT: 338 QTc: 436 [place]: P: 41 IL: 142 QRS: 37 T: 36 INTERPRETIVE STATEMENTS: Normal sinus rhythm Normal ECG Compared to ECG 10/18/2019 19:18:55 Sinus tachycardia no longer present Electronically Signed On 11-19-20 17:31:20 TRAY ROOM WORKER by Jaylon Ambrose
== END 2020-11-19 12:09 | disposition home or self-care (01) ==
LOC: ER 02:30
DX: F32.9 Major depressive disorder, single episode, unspecified (principal); R45.87 Impulsiveness; Z20.822 Contact with and (suspected) exposure to COVID-19
CPT/HCPCS: 36415; 80048; 80076; 80307; 80320; 80329; 81003; 85025; 85610; 85730; 93005; 99284; U0003

== ENCOUNTER 2022-03-03 22:35 | Emergency (ER) | payer SELFPAY ==
--- OUTSIDE RECORDS SUMMARY | 2022-03-03 22:38 | XMS REPORT | Continuity of Care Document ---
:1985 Author Organization [facility] t Address [address] [place] [address] Care Team Providers Name Role Phone Lab, Adc Fam Pob I Attending Clinician Unavailable Annemarie ACCOUNTS RECEIVABLE EXECUTIVE Attending Clinician ANNEMARIE Attending Clinician Unavailable Problems This patient has no known problems. Allergies, Adverse Reactions, Alerts Allergy Allergy Status Severity Reaction(s) Onset Inactive Treating Comm ents Source Name Type Date Date Clinician NO KNOWN Drug [facility] Social History Social Habit Start Date Stop Date Quantity Comments [facility] to [facility] Smoking Status Start Date Stop Date Source Unknown if ever smoked [facility] Medications This patient has no known medications. Procedures This patient has no known procedures. Encounters Start End Encounter Admission Attending Care Care Encounter Source Date/Time Date/Time Type Type Clinicians Facility Department ID 2020-05-13 2020-05-13 Laboratory Lab, [facility] Fam Pob I [facility] 1.2. [id number] Univers 07:43:43 08:03:43 Only Carmella Lugo [facility] [id number] [facility] [id number] Franki as Professio [id number] Ca dical [facility] [address] 2020-05-13 2020-05-13 Outpatient R ANNEMARIE [facility] [id number] Univers 07:40:00 07:40:00 [facility] This patient has no known results.
--- NOTE | 2022-03-03 22:57 | EDPHYS ---
Physician Documentation [facility] Name: Dipesh Lott Age: 36 yrs Sex: Male : 1985 Arrival Date: 03/03/2022 Time: 22:36 Bed Waiting Private MD: ED Physician Mateo Gilbert HPI: 03/03 22:51 This 36 yrs old Male presents to ER via Ambulatory with complaints of Ear Pain.rn 22:51 The patient presents with pain, that is acute. The complaints affect the left ear. rn Onset: The symptoms/episode began/occurred today. Modifying factors: The symptoms are alleviated by nothing, the symptoms are aggravated by loud noise. Associated signs and symptoms: Pertinent positives: tinnitus, Pertinent negatives: fever, rhinorrhea, shortness of breath, sore throat, vertigo, vomiting. Severity of symptoms: At their worst the symptoms were moderate in the emergency department the symptoms are unchanged. The patient has not experienced similar symptoms in the past. The patient has not recently seen a physician. Pt reports recent cold, got better, but tonight began with acute left ear pain, made worse with loud noise. no drainage. No fever. . Historical: - Allergies: 22:49 No Known Allergies; jb4 - Home Meds: 22:49 None [Active]; jb4 - PMHx: 22:49 ADD/ADHD; jb4 - PSHx: 22:49 Appendectomy; jb4 - Immunization history:: Adult Immunizations up to date. - Social history:: Smoking status: Patient denies any tobacco usage or history of. - Family history:: not pertinent. - Hospitalizations: : No recent hospitalization is reported. ROS: 22:51 Constitutional: Negative for fever, chills, and weight loss, Eyes: Negative for injury, rn pain, redness, and discharge, ENT: + left ear pain Neuro: Negative for headache, weakness, numbness, tingling, and seizure. Exam: 22:51 Constitutional: This is a well developed, well nourished patient who is awake, alert, rn appears in pain Head/Face: Normocephalic, atraumatic. Eyes: Pupils equal round and reactive to light, extra-ocular motions intact. Periorbital areas with no swelling, redness, or edema. ENT: Left TM erythematous without fluid or bulging, + inflammation of TM itself. Right TM normal without fluid. Neuro: Awake and alert, GCS 15, oriented to person, place, time, and situation. Cranial nerves II-XII grossly intact. Motor strength 5/5 in all extremities. Sensory grossly intact. Cerebellar exam normal. Normal gait. Vital Signs: 22:48 BP 147 / 105; Pulse 111; Resp 16; Temp 99.0(TE); Pulse Ox 98% on R/A; Weight 81.65 kg jb4 (R); Height 5 ft. 7 in. (170.18 cm); Pain 8/10; 22:48 Body Mass Index 28.19 (81.65 kg, 170.18 cm) jb4 MDM: 22:37 Patient medically screened. rn 22:51 Differential diagnosis: otitis media, otitis externa, acute otalgia, serotympanum, rn myringitis. Data reviewed: vital signs, nurses notes, and as a result, I will discharge patient. Counseling: I had a detailed discussion with the patient and/or guardian regarding: the historical points, exam findings, and any diagnostic results supporting the discharge/admit diagnosis, the need for outpatient follow up, to return to the emergency department if symptoms worsen or persist or if there are any questions or concerns that arise at home. Response to treatment: There is no appreciated change of the patient's symptoms at this time, and as a result, I will discharge patient. Special discussion: I discussed with the patient/guardian in detail that at this point there is no indication for admission to the hospital. It is understood, however, that if the symptoms persist or worsen the patient needs to return immediately for re-evaluation. Administered Medications: 23:03 Drug: Ketorolac 30 mg Route: IM; Site: left deltoid; 4 23:03 Follow up: Response: Medication administered at discharge. jb4 23:03 Drug: Augmentin (Amoxicillin-Clavulanate) 875 mg Route: PO; jb4 23:03 Follow up: Response: Medication administered at discharge. jb4 Disposition Summary: 03/03/22 22:57 Discharge Ordered Location: Home rn Problem: new rn Symptoms: are unchanged rn Condition: Stable rn Diagnosis - Acute myringitis, left ear rn Followup: rn - With: Private Physician - When: As needed - Reason: Recheck today's complaints, Re-evaluation by your physician Discharge Instructions: - Discharge Summary Sheet rn - Earache, Adult rn Forms: - Medication Reconciliation Form rn - Thank You Letter rn - Antibiotic international nurse - Prescription Opioid Use rn - Work release form jb4 Prescriptions: - Augmentin 875-125 mg Oral Tablet - take 1 tablet by ORAL route every 12 hours for 10 days; 20 tablet; Refills: 0, rn Product Selection Permitted Signatures: Mateo Gilbert MD MD rn Bryson, James, RN RN jb4 Corrections: (The following items were deleted from the chart) 22:50 22:49 PSHx: None; 4 jb
--- NOTE | 2022-03-03 22:57 | ER ---
Nurse's Notes [facility] Name: Dipesh Lott Age: 36 yrs Sex: Male : 1985 Arrival Date: 03/03/2022 Time: 22:36 Bed Waiting Private MD: Diagnosis: Acute myringitis, left ear Presentation: 03/03 22:48 Chief complaint: Patient states: I am having ear pain in my left ear since yesterday. I jb4 noticed a clear fluid yesterday. Coronavirus screen: At this time, the client does not indicate any symptoms associated with coronavirus-19. Ebola Screen: No symptoms or risks identified at this time. Initial Sepsis Screen: Does the patient meet any 2 criteria? HR > 90 bpm. Yes Does the patient have a suspected source of infection? No. Patient's initial sepsis screen is negative. Risk Assessment: Do you want to hurt yourself or someone else? Patient reports no desire to harm self or others. Onset of symptoms was March 02, 2022. Transition of care: patient was not received from another setting of care. 22:48 Method Of Arrival: Ambulatory jb4 22:48 Acuity: JOSE 4 jb4 Historical: - Allergies: 22:49 No Known Allergies; jb4 - Home Meds: 22:49 None [Active]; jb4 - PMHx: 22:49 ADD/ADHD; jb4 - PSHx: 22:49 Appendectomy; jb4 - Immunization history:: Adult Immunizations up to date. - Social history:: Smoking status: Patient denies any tobacco usage or history of. - Family history:: not pertinent. - Hospitalizations: : No recent hospitalization is reported. Screenin:01 Abuse screen: Denies threats or abuse. Nutritional screening: No deficits noted. jb4 Tuberculosis screening: No symptoms or risk factors identified. Fall Risk None identified. Assessment: 23:01 General: Appears in no apparent distress. uncomfortable, Behavior is calm, cooperative, jb4 appropriate for age. Pain: Complains of pain in left ear Pain does not radiate. Pain currently is 8 out of 10 on a pain scale. Neuro: Level of Consciousness is awake, alert, obeys commands, Oriented to person, place, time, situation. Cardiovascular: Patient's skin is warm and dry. Respiratory: Airway is patent Respiratory effort is even, unlabored, Respiratory pattern is regular, symmetrical. GI: No signs and/or symptoms were reported involving the gastrointestinal system. : No signs and/or symptoms were reported regarding the genitourinary system. EENT: Ear canal clear on left ear. Derm: Skin is intact, Skin is pink, warm \T\ dry. Musculoskeletal: Circulation, motion, and sensation intact. Range of motion: intact in all extremities. Vital Signs: 22:48 BP 147 / 105; Pulse 111; Resp 16; Temp 99.0(TE); Pulse Ox 98% on R/A; Weight 81.65 kg jb4 (R); Height 5 ft. 7 in. (170.18 cm); Pain 8/10; 22:48 Body Mass Index 28.19 (81.65 kg, 170.18 cm) jb4 ED Course: 22:36 Patient arrived in ED. ja2 22:37 Mateo Gilbert MD is Attending Physician. rn 22:49 Triage completed. jb4 22:49 Arm band placed on right wrist. jb4 23:01 Patient has correct armband on for positive identification. Bed in low position. Call jb4 light in reach. Side rails up X 1. 23:01 No provider procedures requiring assistance completed. Patient did not have IV access jb4 during this emergency room visit. Administered Medications: 23:03 Drug: Ketorolac 30 mg Route: IM; Site: left deltoid; jb4 23:03 Follow up: Response: Medication administered at discharge. jb4 23:03 Drug: Augmentin (Amoxicillin-Clavulanate) 875 mg Route: PO; jb4 23:03 Follow up: Response: Medication administered at discharge. 4 Outcome: 22:57 Discharge ordered by . rn 23:01 Discharged to home ambulatory. jb4 23:01 Condition: stable 23:01 Discharge instructions given to patient, Instructed on discharge instructions, follow up and referral plans. medication usage, Demonstrated understanding of instructions, follow-up care, medications, Prescriptions given X 1. 23:03 Patient left the ED. jb4 Signatures: Mateo Gilbert MD MD rn Bryson, James, RN RN jb4 Jodie Hughes2 Corrections: (The following items were deleted from the chart) 22:50 22:49 PSHx: None; jb4 jb4
[2022-03-03] MEDS ORDERED: KETOROLAC 30 MG/ML INJ ONE (23:00)
[2022-03-03] MEDS ORDERED: AMOX/K CLAV 875 MG TAB ONE (23:00)
[2022-03-04 06:10] VITALS: BP 147/105; TEMP 99; O2SAT 98
== END 2022-03-03 23:03 | disposition home or self-care (01) ==
LOC: ER 22:35
DX: H73.002 Acute myringitis, left ear (principal)
CPT/HCPCS: 96372; 99283